=== PATIENT | female | born 1995 ===

== ENCOUNTER 2019-09-07 14:00 | Inpatient (IN) | payer OTHER ==
[2019-09-07 15:09] VITALS: BMI 31.4
[2019-09-07] MEDS ORDERED: ELECTROLYTE-148 SOLN 500 ML IV SCH (15:30)
[2019-09-07] MEDS ORDERED: CITRIC ACID/SODIUM CITRATE 30 ML UNIT-DOSE CUP PO ONE ×2 (15:30→15:53)
--- NOTE | 2019-09-07 15:59 | HP ---
Past Medical History - Primary Care Physician PCP:: Hattie Aquino - Admission Chief Complaint: Breech presentation, IUGR, 38 weeks History Source: Patient - Past Medical History ...: 1 ...Para: 0 ...Term: 0 ...: 0 ...Spon : 0 ...Induced : 0 ...Living Children: 0 ...Multiple Gestation: 0 ...LMP: 12/15/18 ... Weeks Gestation by Dates: 38.0 ...EDC by Dates: 09/21/19 ...EDC by Sono: 09/21/19 - Past Surgical History Past Surgical History: Yes: None Hx Myomectomy: No Hx Transabdominal Cerclage: No - Smoking History Smoking history: Never smoked Have you smoked in the past 12 months: No - Alcohol/Substance Use Hx Alcohol Use: No History of Substance Use: reports: None - Social History Usual Living Arrangement: Yes: With Parent Home Medications - Allergies Allergies/Adverse Reactions: Allergies Allergy/AdvReac Type Severity Reaction Status Date / Time No Known Allergies Allergy Verified 09/07/19 14:54 - Home Medications Home Medications: Ambulatory Orders Pnv No.95/Ferrous Fum/Folic AC [ Formula] 1 each PO DAILY 09/07/19 Ibuprofen [Motrin -] 600 mg PO QID PRN #28 tablet 09/10/19 Family Medical History Family History: Denies, Unremarkable Review of Systems - Review of Systems Constitutional: reports: No Symptoms Eyes: reports: No Symptoms HENT: reports: No Symptoms Neck: reports: No Symptoms Cardiovascular: reports: No Symptoms Respiratory: reports: No Symptoms Gastrointestinal: reports: No Symptoms Genitourinary: reports: No Symptoms Breasts: reports: No Symptoms Reported Musculoskeletal: reports: No Symptoms Integumentary: reports: No Symptoms Neurological: reports: No Symptoms Endocrine: reports: No Symptoms Hematology/Lymphatic: reports: No Symptoms Psychiatric: reports: No Symptoms Physical Exam - Maternity Vital Signs: Vital Signs Temperature 97.6 F 09/07/19 15:00 Pulse Rate 86 09/07/19 15:00 Respiratory Rate 18 09/07/19 15:00 Blood Pressure 116/58 L 09/07/19 15:00 O2 Sat by Pulse Oximetry (%) 99 09/07/19 15:00 Constitutional: Yes: Well Nourished, No Distress Eyes: Yes: WNL HENT: Yes: WNL Neck: Yes: WNL Cardiovascular: Yes: WNL Lungs: Clear to auscultation Breast(s): Yes: WNL - Abdominal Exam/OB Number of Fetuses: Single Presentation: Breech Contractions: No Regularity: Irregular Intensity: Unaware Monitor Mode: External Heart Rate Location: [facility] Category: I Accelerations: Uniform Decelerations: None - Vaginal Exam/OB Vaginal Bleeding: No Dilatation (cm): closed Effacement (%): 30 Presentation: Fernando Breech Station: -1 - Physical Exam Musculoskeletal: Yes: WNL Extremities: Yes: WNL Edema: No Integumentary: Yes: WNL ...Motor Strength: WNL Psychiatric: Yes: WNL Hemorrhage Risk Assessment - Risk Factors Risk Score: 1 Risk Level: Medium Risk Problem List - Problems (1) Breech presentation Code(s): O32.1XX0 - MATERNAL CARE FOR BREECH PRESENTATION, UNSP (3) 38 weeks gestation of Code(s): Z3A.38 - 38 WEEKS GESTATION OF (4) GBS carrier Code(s): Z22.330 - CARRIER OF GROUP B STREPTOCOCCUS Assessment/Plan Admit to LD Cesarian delivery Risks, benefits, alternatives of cd discussed with pt Pt verbalized understanding
[2019-09-07] MEDS ORDERED: ELECTROLYTE-148 SOLN 1,000 ML IV SCH (16:00)
[2019-09-07] MEDS ORDERED: morphine SULFATE/PF 0.5 MG/ML (2cc Syringe - QUVA) ONE (16:14)
[2019-09-07] MEDS ORDERED: OXYTOCIN 20 UNITS in 0.9% NS 20 UNIT/1,000 ML INFUS.BAG IV ONE ×2 (16:27→17:59)
[2019-09-07] MEDS ORDERED: ONDANSETRON 4 MG/2 ML VIAL IVPUSH PRN (17:39)
[2019-09-07] MEDS: OXYTOCIN 20 UNITS in 0.9% NS 20 UNIT/1,000 ML INFUS.BAG IV SCH (18:00)
[2019-09-07] MEDS ORDERED: METHYLERGONOVINE MALEATE 0.2 MG/1 ML AMP IM PRN (18:15)
--- NOTE | 2019-09-07 18:27 | OP ---
Operative Note - Note: Operative Date: 09/07/19 Pre-Operative Diagnosis: Breech presentation. IUGR. 38 weeks Operation: LTCS via Pfannenstiel Incision Findings: Baby girl born as breech 9/9 Delayed cord clamp Cord gases and blood collected Placenta and membranes complete - sent to pathology Post-Operative Diagnosis: Same as Pre-op Surgeon: Hattie Aquino Defense Travel Administrator: Lon Ohara Anesthesiologist/COORDINATOR MINING PRODUCTS: Parag Mtz Anesthesia: Spinal Specimens Removed: placenta and membranes Estimated Blood Loss (mls): 800 Fluid Volume Replaced (mls): 1,000 Operative Report Dictated: No
[2019-09-07] MEDS: IBUPROFEN 800 MG/8 ML IJ IVPB PRN (18:30)
[2019-09-08] MEDS: CEFAZOLIN 1 GM/D5W 1 GM/50 ML BAG IVPB SCH ×3 (02:05→17:56)
[2019-09-08] MEDS: IBUPROFEN 800 MG/8 ML IJ IVPB PRN ×2 (02:24→13:47)
[2019-09-08] MEDS: oxyCODONE HCL 5 MG TABLET PO PRN ×2 (08:35→21:56)
[2019-09-08 09:15] LABS: BASO % 0.3 % (0-2.0); HEMOGLOBIN 12.6 GM/dL (10.7-15.3); LYMPH % 8.8 % (8-40); MCHC 33.1 g/dl (32.0-36.0); MEAN CELL VOLUME 90.7 fl (80-96); MEAN PLT VOLUME 8.2 fl (7.5-11.1); MONO % 7.2 % (3.8-10.2); NEUT % 82.7 % (42.8-82.8); PLATELET COUNT 214 K/MM3 (134-434); RBC 4.19 M/mm3 (3.60-5.2); RDW 14.2 % (11.6-15.6)
--- NOTE | 2019-09-08 09:59 | PN ---
Post Progress Note - Subjective Subjective: happy c/o incisional pain Type of Delivery: Primary C/S Vital Signs: Vital Signs Temperature 97.6 F 09/08/19 09:49 Pulse Rate 69 09/08/19 09:49 Respiratory Rate 18 09/08/19 09:49 Blood Pressure 85/52 L 09/08/19 09:49 O2 Sat by Pulse Oximetry (%) 100 09/07/19 18:30 Breast Exam: Yes: Soft Uterus: Yes: Fundus Firm, Fundus below umbilicus Incision: Yes: Dressing dry and intact Abdomen/GI: Yes: Abdomen soft Lochia: Yes: Rubra Lochia, amount: Small Activity: Ambulating (regular diet, ambulate) - Labs Labs: CBC WBC 15.0 K/mm3 (4.0-10.0) H 09/08/19 08:20 RBC 4.19 M/mm3 (3.60-5.2) 09/08/19 08:20 Hgb 12.6 GM/dL (10.7-15.3) 09/08/19 08:20 Hct 38.0 % (32.4-45.2) 09/08/19 08:20 MCV 90.7 fl (80-96) 09/08/19 08:20 MCH 30.0 pg (25.7-33.7) 09/08/19 08:20 MCHC 33.1 g/dl (32.0-36.0) 09/08/19 08:20 RDW 14.2 % (11.6-15.6) 09/08/19 08:20 Plt Count 214 K/MM3 (134-434) 09/08/19 08:20 MPV 8.2 fl (7.5-11.1) 09/08/19 08:20 Absolute Neuts (auto) 12.4 K/mm3 (1.5-8.0) H 09/08/19 08:20 Neutrophils % 82.7 % (42.8-82.8) 09/08/19 08:20 Lymphocytes % 8.8 % (8-40) D 09/08/19 08:20 Monocytes % 7.2 % (3.8-10.2) 09/08/19 08:20 Eosinophils % 1.0 % (0-4.5) 07/29/20 08:20 Basophils % 0.3 % (0-2.0) 09/08/19 08:20 Nucleated RBC % 0 % (0-0) 09/08/19 08:20 Problem List - Problems (1) Breech presentation Code(s): O32.1XX0 - MATERNAL CARE FOR BREECH PRESENTATION, UNSP (3) 38 weeks gestation of Code(s): Z3A.38 - 38 WEEKS GESTATION OF (4) GBS carrier Code(s): Z22.330 - CARRIER OF GROUP B STREPTOCOCCUS Assessment/Plan ambulate
[2019-09-08] MEDS ORDERED: ACETAMINOPHEN 1000 MG/100 ML VIAL (NON FORMULARY) IVPB PRN (10:00)
[2019-09-08] MEDS: ENOXAPARIN NA (PORCINE) 40 MG/0.4 ML DISP.SYRIN SQ SCH (10:28)
[2019-09-08] MEDS ORDERED: BISACODYL 10 MG SUPP.RECT RC PRN (18:15)
[2019-09-08] MEDS: ACETAMINOPHEN 325 MG TABLET (FP) PO PRN (21:55)
[2019-09-08] MEDS: IBUPROFEN 600 MG TABLET (FP) PO PRN (21:56)
[2019-09-08] MEDS: SIMETHICONE 80 MG TAB.CHEW (FP) PO PRN (21:57)
[2019-09-09] MEDS: OXYTOCIN 20 UNITS in 0.9% NS 20 UNIT/1,000 ML INFUS.BAG IV SCH (00:40)
[2019-09-09] MEDS: ACETAMINOPHEN 325 MG TABLET (FP) PO PRN ×3 (08:10→22:46)
[2019-09-09] MEDS: SIMETHICONE 80 MG TAB.CHEW (FP) PO PRN ×3 (08:10→22:47)
[2019-09-09] MEDS: IBUPROFEN 600 MG TABLET (FP) PO PRN ×3 (08:11→22:47)
[2019-09-09] MEDS: ENOXAPARIN NA (PORCINE) 40 MG/0.4 ML DISP.SYRIN SQ SCH (11:27)
--- NOTE | 2019-09-09 15:48 | OP ---
DATE OF OPERATION: 09/07/2019 PREOPERATIVE DIAGNOSIS: Breech presentation, intrauterine growth restriction 38 weeks. POSTOPERATIVE DIAGNOSIS: Breech presentation, intrauterine growth restriction 38 weeks, pending pathology. SURGERY PROCEDURE: Primary low transverse section via Pfannenstiel incision. SURGEON: Adrianna Valentine MD PACKAGING ASSOCIATE: Lon Ohara MD ANESTHESIA: Dat Mtz MD, spinal. COMPLICATION: None. ESTIMATED BLOOD LOSS: 800 mL. FLUID: Lactated Ringer's 1500 mL. URINE OUTPUT: Clear urine 300 mL at the end of the procedure. FINDINGS: Baby girl born as breech, 9, 9. Delayed cord clamp. Cord gases and cord blood collected. Placenta and membranes complete sent to Pathology. PROCEDURE: The patient was taken to the operating room where spinal anesthesia was administered without complication. She was prepped and draped in the normal usual fashion in dorsal supine position with a leftward tilt. A Pfannenstiel skin incision was made with a scalpel and carried through to the underlying layer of fascia with the Bovie. The fascia was incised in the midline and the incision extended laterally with Burgess scissors. The superior and the inferior aspects of fascial incision were grasped with Giselle clamps, elevated and the underlying rectus muscle dissected off bluntly. Attention was then turned to the rectus muscles which were in the midline. Peritoneum identified, tented up and entered sharply with Metzenbaum scissors. The peritoneal incision was then extended superiorly and inferiorly with good visualization of the bladder. The bladder blade was inserted and vesicouterine peritoneum identified, grasped with pickups and entered sharply with Metzenbaum scissors. This incision was then extended laterally and the bladder flap created digitally. The bladder blade was then reinserted and the lower uterine segment incised in transverse fashion with a scalpel. The uterine incision was then extended laterally with bandage scissors. The bladder blade was removed and the 's breech delivered atraumatically. The nose and mouth were suctioned and the cord clamped and cut. The infant was handed off to the waiting sports centre manager. Cord gases were sent. The placenta was then removed manually, the uterus exteriorized and cleared of all clots and debris. The uterine incision was repaired with 1-0 chromic in a running locked fashion. Second layer of the same suture was used to obtain hemostasis. The bladder flap was repaired with 3-0 chromic in a running stitch and the uterus returned to the abdomen. The gutters were clear of all clots and the peritoneum closed with 3-0 Vicryl. The fascia was reapproximated with 0 Vicryl in a running fashion and the skin was closed with 4-0 Vicryl in a subcuticular fashion. The patient was taken to the recovery room in stable condition. ADRIANNA VALENTINE MD RP/[id number] MTDD
[2019-09-10] MEDS: oxyCODONE HCL 5 MG TABLET PO PRN ×2 (01:33→10:00)
[2019-09-10 08:26] LABS: BASO % 0.4 % (0-2.0); EOS % 2.7 % (0-4.5); HEMATOCRIT 35.2 % (32.4-45.2); HEMOGLOBIN 12.1 GM/dL (10.7-15.3); LYMPH % 18.5 % (8-40); MCH 31.3 pg (25.7-33.7); MCHC 34.4 g/dl (32.0-36.0); MEAN PLT VOLUME 8.3 fl (7.5-11.1); MONO % 8.6 % (3.8-10.2); NEUT % 69.8 % (42.8-82.8); PLATELET COUNT 234 K/MM3 (134-434); RBC 3.86 M/mm3 (3.60-5.2); WHITE BLOOD COUNT 10.4 K/mm3 (4.0-10.0)
[2019-09-10] MEDS: ENOXAPARIN NA (PORCINE) 40 MG/0.4 ML DISP.SYRIN SQ SCH (09:59)
[2019-09-10] MEDS: SIMETHICONE 80 MG TAB.CHEW (FP) PO PRN (10:00)
[2019-09-10] MEDS: ACETAMINOPHEN 325 MG TABLET (FP) PO PRN (10:01)
--- NOTE | 2019-09-10 11:47 | PN ---
Post Progress Note Post Day: 3 Type of Delivery: Primary C/S Vital Signs: Vital Signs Temperature 98.3 F 09/09/19 22:00 Pulse Rate 77 09/09/19 22:00 Respiratory Rate 18 09/09/19 22:00 Blood Pressure 102/55 L 09/09/19 22:00 O2 Sat by Pulse Oximetry (%) 100 09/07/19 18:30 Breast Exam: Yes: Soft, Engorged Uterus: Yes: Fundus Firm, Fundus below umbilicus Incision: Yes: Sutures intact Abdomen/GI: Yes: Abdomen soft, Tender, Passing flatus, Tolerating PO Lochia: Yes: Rubra Lochia, amount: Small Extremities: Yes: Calves non-tender Activity: Ambulating (Encourage ) - Labs Labs: CBC WBC 10.4 K/mm3 (4.0-10.0) H 09/10/19 07:50 RBC 3.86 M/mm3 (3.60-5.2) 09/10/19 07:50 Hgb 12.1 GM/dL (10.7-15.3) 09/10/19 07:50 Hct 35.2 % (32.4-45.2) 09/10/19 07:50 MCV 91.0 fl (80-96) 09/10/19 07:50 MCH 31.3 pg (25.7-33.7) 09/10/19 07:50 MCHC 34.4 g/dl (32.0-36.0) 09/10/19 07:50 RDW 14.0 % (11.6-15.6) 09/10/19 07:50 Plt Count 234 K/MM3 (134-434) 09/10/19 07:50 MPV 8.3 fl (7.5-11.1) 09/10/19 07:50 Absolute Neuts (auto) 7.3 K/mm3 (1.5-8.0) 09/10/19 07:50 Neutrophils % 69.8 % (42.8-82.8) 09/10/19 07:50 Lymphocytes % 18.5 % (8-40) D 09/10/19 07:50 Monocytes % 8.6 % (3.8-10.2) 09/10/19 07:50 Eosinophils % 2.7 % (0-4.5) D 09/10/19 07:50 Basophils % 0.4 % (0-2.0) 09/10/19 07:50 Nucleated RBC % 0 % (0-0) 09/10/19 07:50 Problem List - Problems (1) Breech presentation Code(s): O32.1XX0 - MATERNAL CARE FOR BREECH PRESENTATION, UNSP (3) 38 weeks gestation of Code(s): Z3A.38 - 38 WEEKS GESTATION OF (4) GBS carrier Code(s): Z22.330 - CARRIER OF GROUP B STREPTOCOCCUS
--- NOTE | 2019-09-10 11:51 | DS ---
Physical Exam-REST ROOM ATTENDANT Vital Signs: Vital Signs Temperature 98.3 F 09/09/19 22:00 Pulse Rate 77 09/09/19 22:00 Respiratory Rate 18 09/09/19 22:00 Blood Pressure 102/55 L 09/09/19 22:00 O2 Sat by Pulse Oximetry (%) 100 09/07/19 18:30 Constitutional: Yes: Well Nourished, No Distress Eyes: Yes: WNL HENT: Yes: WNL Neck: Yes: WNL Cardiovascular: Yes: WNL Respiratory: Yes: WNL Gastrointestinal: Yes: WNL ...Rectal Exam: Yes: WNL Renal/: Yes: WNL Pelvis: Yes: WNL External Genitalia: Yes: Normal Vaginal Exam: Yes: Normal ....Post : Yes: Slight lochia rubra Breast(s): Yes: WNL Musculoskeletal: Yes: WNL Extremities: Yes: WNL Edema: No Integumentary: Yes: WNL Wound/Incision: Yes: Clean/Dry, Well Approximated, Sutures Intact Neurological: Yes: WNL ...Motor Strength: WNL Psychiatric: Yes: WNL (may go home today f/u in 2 wks for wound check) Labs: CBC, BMP 09/10/19 07:50 Delivery - Delivery Section: Primary Type of Anesthesia: Spinal Episiotomy/Laceration: None EBL (cc): 600 Delivery, Single - Stages of Labor Date of Delivery: 09/07/19 Time of Delivery: 16:35 Time Placenta Delivered: 16:36 - Condition of Infant Product Transfer Pumper/Milk House Worker Present: Yes Name: Fabio Alvarez Gender: Female Weight: 2.807 kg Total Hours ROM (Hrs/Mins): 3mins - 1 Minute Total Score: 9 5 Minutes Total Score: 9 - [place] Feeding Plan Initial Plan: Elected not to breastfeed exclusively throughout hospitalization Discharge Summary Problems reviewed: Yes Reason For Visit: Current Active Problems 38 weeks gestation of (Acute) Breech presentation (Acute) GBS carrier (Acute) IUGR (intrauterine growth restriction) (Acute) Hospital Course: good Plan of Treatment: Regular diet Ambulate F/U in 2 weeks for wound check Condition: Good - Instructions Diet, Activity, Other Instructions: regular Disposition: HOME - Home Medications Comprehensive Discharge Medication List: Ambulatory Orders Pnv No.95/Ferrous Fum/Folic AC [ Formula] 1 each PO DAILY 09/07/19
[2019-09-10 13:58] VITALS: BP 104/66; PULSE 87; TEMP 98.5
--- NOTE | 2019-09-10 17:44 | PATH ---
Surgical Pathology Report Patient Name: SHARON ADHIKARI [facility]. Rec. #: [id number] /Age/Gender: 1995 (Age: 23) / F Account: [id number] Location: [facility] OBS/CASKET ASSEMBLER METAL Taken: 09/07/2019 Received: 09/08/2019 Reported: 09/10/2019 Physicians: Hattie Aquino M.D. Specimen(s) Received PLACENTA Clinical History , 38 weeks, breech, IUGR Final Diagnosis PLACENTA: THIRD TRIMESTER PLACENTA. TRIVASCULAR CORD. MEMBRANES WITH NO DIAGNOSTIC ABNORMALITIES. Electronically Signed Cong Ortiz M.D. Gross Description The specimen is received fresh labeled placenta and is a 449gram, 16.5 x14.5 x 2.1cm. placenta with attached membranes and umbilical cord. The attached membranes are glistening, translucent, and insert marginally. The umbilical cord measures 9 cm. in length and averages 1.5 cm. in diameter. The cord inserts eccentrically, 3.5 centimeter to the nearest margin. No true knots or strictures are identified. Cut surface of the umbilical cord reveals 3 vessels. Sectioning reveals red-brown, spongy parenchyma. No lesions are identified. Car Worker Helper sections are submitted in three cassettes as follows: 1- membrane rolls and umbilical cord; 2-3- full thickness sections of placenta KWS/09/08/2019 sulki/09/08/2019
== END 2019-09-10 13:15 | disposition home or self-care (01) | DRG 540 ==
LOC: JLDR 14:00 → J3W 19:25
PROVIDERS: ADMIT Obstetrics & Gynecology; ATTEND Obstetrics & Gynecology
PROC: 10D00Z1 Extraction of Products of Conception, Low, Open Approach (ICD-10-PCS; principal; 2019-09-07)
DX: O32.1XX0 Maternal care for breech presentation, not applicable or unspecified (principal); O36.5930 Maternal care for other known or suspected poor fetal growth, third trimester, not applicable or unspecified; Z3A.38 38 weeks gestation of pregnancy; Z37.0 Single live birth; Z22.330 Carrier of Group B streptococcus
CPT/HCPCS: 36415; 85025; 88307-TC